=== PATIENT | male | born 1935 | race Hispanic/Latino ===

== ENCOUNTER 2019-03-15 22:47 | Observation (INO) | payer OTHER ==
[2019-03-15] MEDS ORDERED: ASPIRIN 81 MG CHEWABLE TABLET ONE (23:20)
[2019-03-15 23:28] LABS: Absolute Lymphocytes (CBC) 1.6 K/uL (0.7-4.9); Hematocrit 39.1 % (39.6-49.0); Lymphocytes % 19.9 % (15.3-44.8); MPV 9.8 fL (7.6-11.3); RBC Red Blood Cell Count 4.11 M/uL (4.33-5.43)
[2019-03-15 23:29] LABS: Protime INR 1.03
[2019-03-15 23:46] LABS: ALT/SGPT 26 U/L (12-78); AST/SGOT 21 U/L (15-37); Albumin 3.9 g/dL (3.4-5.0); Alkaline Phosphatase 99 U/L (45-117); BUN Blood Urea Nitrogen 23 mg/dL (7-18); Bicarbonate 24 mmol/L (21-32); Bilirubin Direct 0.1 mg/dL (0-0.2); Bilirubin Total 0.3 mg/dL (0.2-1.0); Glucose Level 93 mg/dL (74-106); Magnesium 2.1 mg/dL (1.8-2.4); NT PRO-BNP 223 pg/mL (<450); Potassium 3.3 mmol/L (3.5-5.1); Protein, Total 6.8 g/dL (6.4-8.2); Sodium Level 141 mmol/L (136-145); Troponin (Emerg Dept Use Only) < 0.02 ng/mL (0.0-0.045)
--- NOTE | 2019-03-16 01:32 | ER ---
Nurse's Notes [facility] Name: Av Garcia Age: 83 yrs Sex: Male : 1935 Arrival Date: 03/15/2019 Time: 22:50 Bed 17 Private MD: Diagnosis: Chest pain, unspecified Presentation: 03/15 22:55 Presenting complaint: Patient states: Pt reports he started feeling short of breath for ea the past two to three days, reports it worsened two hours ago, complaining of pain with deep breathing. Transition of care: patient was not received from another setting of care. Onset of symptoms was March 15, 2019. Risk Assessment: Do you want to hurt yourself or someone else? Patient reports no desire to harm self or others. Initial Sepsis Screen: Does the patient meet any 2 criteria? No. Patient's initial sepsis screen is negative. Does the patient have a suspected source of infection? No. Patient's initial sepsis screen is negative. Care prior to arrival: None. 22:55 Method Of Arrival: Wheelchair ea 22:55 Acuity: LILIANE 3 ea Triage Assessment: 23:00 General: Appears in no apparent distress. Behavior is calm, cooperative, appropriate ea for age. Pain: Complains of pain in chest. Neuro: Level of Consciousness is awake, alert, obeys commands, Oriented to person, place, time, situation. Respiratory: Airway is patent Respiratory effort is even, unlabored, Respiratory pattern is tachypnea. Historical: - Allergies: 23:00 No Known Allergies; ea - Home Meds: 23:00 losartan oral oral [Active]; ea - PMHx: 23:00 Hypertension; ea - PSHx: 23:00 None; ea - Immunization history:: Adult Immunizations up to date. - Social history:: Smoking status: Patient/guardian denies using tobacco. - Ebola Screening: : No symptoms or risks identified at this time. Screenin:59 Abuse screen: Denies threats or abuse. Nutritional screening: No deficits noted. ea Tuberculosis screening: No symptoms or risk factors identified. Fall Risk None identified. Assessment: 23:05 General: Appears in no apparent distress. comfortable, Behavior is calm, cooperative, ca1 appropriate for age. Pain: Complains of pain in chest Pain does not radiate. Pain currently is 8 out of 10 on a pain scale. Quality of pain is described as pressure, Pain began 4 hours ago. Is intermittent. Neuro: Level of Consciousness is awake, alert, obeys commands, Oriented to person, place, time, situation. Cardiovascular: Heart tones S1 S2 present Capillary refill < 3 seconds Patient's skin is warm and dry. Pulses are all present. Edema is 1+ to left foot and right foot Rhythm is sinus rhythm. Respiratory: Reports shortness of breath on exertion since 2-3 days Airway is patent Respiratory effort is even, unlabored, Respiratory pattern is regular, symmetrical, Breath sounds are clear bilaterally. GI: Abdomen is round non-distended, Bowel sounds present X 4 quads. Abd is soft and non tender X 4 quads. : No deficits noted. No signs and/or symptoms were reported regarding the genitourinary system. EENT: No deficits noted. No signs and/or symptoms were reported regarding the EENT system. Derm: Skin is intact, is healthy with good turgor, Skin is pink, warm \T\ dry. Musculoskeletal: Circulation, motion, and sensation intact. Capillary refill < 3 seconds, Range of motion: intact in all extremities. 03/16 00:52 Reassessment: Patient and/or family updated on plan of care and expected duration. Pain ea level reassessed. Patient is alert, oriented x 3, equal unlabored respirations, skin warm/dry/pink. 01:55 Reassessment: Patient and/or family updated on plan of care and expected duration. Pain ea level reassessed. Patient is alert, oriented x 3, equal unlabored respirations, skin warm/dry/pink. Awaiting for room assingment. 02:50 Reassessment: Patient and/or family updated on plan of care and expected duration. Pain ea level reassessed. Patient is alert, oriented x 3, equal unlabored respirations, skin warm/dry/pink. Report called to David RICARDO. 03:00 Reassessment: Patient and/or family updated on plan of care and expected duration. Pain ea level reassessed. Patient is alert, oriented x 3, equal unlabored respirations, skin warm/dry/pink. Pt admitted to fourth floor, taken via wheelchair per tech, accompanied by family pt tolerating well. Vital Signs: 03/15 22:58 BP 167 / 73; Pulse 69; Resp 22; Temp 98.5; Pulse Ox 98% on R/A; Weight 68.04 kg; Height ea 5 ft. 5 in. (165.10 cm); 03/16 00:51 BP 153 / 64; Pulse 50; Resp 18; Pulse Ox 98% on R/A; ea 01:55 BP 151 / 72; Pulse 50; Resp 18; Pulse Ox 98% ; ea 02:30 BP 171 / 77; Pulse 50; Resp 15 S; Pulse Ox 98% on R/A; cc3 03/15 22:58 Body Mass Index 24.96 (68.04 kg, 165.10 cm) ea ED Course: 03/15 22:50 Patient arrived in ED. ag3 22:56 Sanam Portillo, HALEIGH is Primary Nurse. ca1 22:58 Triage completed. ea 22:59 Patient has correct armband on for positive identification. Bed in low position. Call ea light in reach. Side rails up X2. 22:59 Arm band placed on right wrist. Patient placed in an exam room, on a stretcher, on ea pulse oximetry. 23:03 Erasto Kidd MD is Attending Physician. tw4 23:04 No provider procedures requiring assistance completed. Inserted saline lock: 20 gauge ca1 in right antecubital area, using aseptic technique. Blood collected. 23:36 X-ray completed. Portable x-ray completed in exam room. Patient tolerated procedure kw well. 23:37 XRAY Chest (1 view) In Process Unspecified. EDMS 03/16 00:46 CT Chest For PE Angio In Process Unspecified. EDMS 01:13 Ridge Rosen MD is Hospitalizing Provider. tw4 02:48 Patient admitted, IV remains in place. ea Administered Medications: 03/15 23:23 Drug: Aspirin 81 mg Route: PO; ca1 03/16 00:00 Follow up: Response: No adverse reaction ea Outcome: 01:14 Decision to Hospitalize by Provider. tw4 02:50 Instructed on the need for admit, Demonstrated understanding of instructions. ea 03:03 Admitted to Med/surg accompanied by tech, via wheelchair, with chart, Report called to russell Hernandez RN 03:03 Condition: stable 03:08 Patient left the ED. ea Signatures: Dispatcher [employer] Raina Kemp Elena, RN RN Erasto Julian MD MD tw4 Devora Tavarez cc3 Tatyana Barnard ag3 Sanam Portillo RN RN ca1 Corrections: (The following items were deleted from the chart) 03/15 23:01 22:58 BP 167 / 73; Pulse 69bpm; Resp 18bpm; Pulse Ox 98% RA; Temp 98.5F; 68.04 kg; ea Height 5 ft. 5 in.; BMI: 24.9; ea 03/16 03:05 03:03 Admitted to Med/surg accompanied by tech, via wheelchair, with chart, Report ea called to David wells
--- NOTE | 2019-03-16 01:34 | EDPHYS ---
Physician Documentation [facility] Name: Av Garcia Age: 83 yrs Sex: Male : 1935 Arrival Date: 03/15/2019 Time: 22:50 Bed 17 Private MD: ED Physician Erasto Kidd HPI: 03/16 01:05 This 83 yrs old Male presents to ER via Wheelchair with complaints of SOB. tw4 01:05 The patient or guardian reports chest pain that is located primarily in the anterior tw4 chest wall, left. Onset: today. The pain does not radiate. Associated signs and symptoms: The patient has no apparent associated signs or symptoms. The chest pain is described as dull. Severity of pain: At its worst the pain was moderate in the emergency department the pain. Historical: - Allergies: 03/15 23:00 No Known Allergies; ea - Home Meds: 23:00 losartan oral oral [Active]; ea - PMHx: 23:00 Hypertension; ea - PSHx: 23:00 None; ea - Immunization history:: Adult Immunizations up to date. - Social history:: Smoking status: Patient/guardian denies using tobacco. - Ebola Screening: : No symptoms or risks identified at this time. ROS: 03/16 01:05 Constitutional: Negative for fever, chills, and weight loss, Eyes: Negative for injury, tw4 pain, redness, and discharge, Abdomen/GI: Negative for abdominal pain, nausea, vomiting, diarrhea, and constipation. MS/Extremity: Negative for injury and deformity, Skin: Negative for injury, rash, and discoloration. Cardiovascular: Positive for chest pain, Negative for edema, orthopnea, palpitations. Respiratory: Positive for shortness of breath, Negative for cough, dyspnea on exertion, hemoptysis, orthopnea, pleurisy. Exam: 01:05 Constitutional: This is a well developed, well nourished patient who is awake, alert, tw4 and in no acute distress. Head/Face: Normocephalic, atraumatic. Chest/axilla: Normal chest wall appearance and motion. Nontender with no deformity. No lesions are appreciated. Cardiovascular: Regular rate and rhythm with a normal S1 and S2. No gallops, murmurs, or rubs. Normal PMI, no JVD. No pulse deficits. Respiratory: Lungs have equal breath sounds bilaterally, clear to auscultation and percussion. No rales, rhonchi or wheezes noted. No increased work of breathing, no retractions or nasal flaring. Abdomen/GI: Soft, non-tender, with normal bowel sounds. No distension or tympany. No guarding or rebound. No evidence of tenderness throughout. Back: No spinal tenderness. No costovertebral tenderness. Full range of motion. MS/ Extremity: Pulses equal, no cyanosis. Neurovascular intact. Full, normal range of motion. Neuro: Awake and alert, GCS 15, oriented to person, place, time, and situation. Cranial nerves II-XII grossly intact. Motor strength 5/5 in all extremities. Sensory grossly intact. Cerebellar exam normal. Normal gait. Vital Signs: 03/15 22:58 BP 167 / 73; Pulse 69; Resp 22; Temp 98.5; Pulse Ox 98% on R/A; Weight 68.04 kg; Height ea 5 ft. 5 in. (165.10 cm); 03/16 00:51 BP 153 / 64; Pulse 50; Resp 18; Pulse Ox 98% on R/A; ea 01:55 BP 151 / 72; Pulse 50; Resp 18; Pulse Ox 98% ; ea 02:30 BP 171 / 77; Pulse 50; Resp 15 S; Pulse Ox 98% on R/A; cc3 03/15 22:58 Body Mass Index 24.96 (68.04 kg, 165.10 cm) ea MDM: 03/15 23:03 Patient medically screened. tw4 03/16 01:14 Differential diagnosis: acute pericarditis, pneumonia, pulmonary embolus, stable tw4 angina. Data reviewed: vital signs, nurses notes. Data interpreted: Pulse oximetry: Interpretation: normal. Counseling: I had a detailed discussion with the patient and/or guardian regarding: the historical points, exam findings, and any diagnostic results supporting the discharge/admit diagnosis, radiology results. Special discussion: I discussed with the patient/guardian in detail that at this point there is no indication for admission to the hospital. It is understood, however, that if the symptoms persist or worsen the patient needs to return immediately for re-evaluation. 03/15 23:04 Order name: Basic Metabolic Panel ca1 03/15 23:04 Order name: CBC with Diff ca1 03/15 23:04 Order name: LFT's ca1 03/15 23:04 Order name: Magnesium; Complete Time: 01:11 [facility] 03/16 01:12 Interpretation: Within normal limits: MG 2.1. tw 03/15 23:04 Order name: NT PRO-BNP; Complete Time: 01:11 [facility] 03/16 01:12 Interpretation: Within normal limits: NT PRO-BNP 223. [facility] 03/15 23:04 Order name: PT-INR; Complete Time: 01:11 [facility] 03/16 01:12 Interpretation: Within normal limits: PT 12.1. tw 03/15 23:04 Order name: Troponin (emerg Dept Use Only); Complete Time: 01:11 [facility] 03/16 01:12 Interpretation: Within normal limits: TROPED < 0.02. [facility] 03/15 23:04 Order name: XRAY Chest (1 view) [facility] 03/15 23:04 Order name: Basic Metabolic Panel; Complete Time: 01:11 [facility] 03/16 01:12 Interpretation: Normal except: CL 109; BUN 23; GFR 84; K 3.3. [facility] 03/15 23:04 Order name: CBC with Automated Diff; Complete Time: 01:11 [facility] 03/16 01:12 Interpretation: Normal except: RBC 4.11; HGB 13.4; HCT 39.1; MCV 95.2; MN% 13.7. [facility] 03/15 23:04 Order name: Liver (Hepatic) Function; Complete Time: 01:11 [facility] 03/16 01:12 Interpretation: Within normal limits. [facility] 03/16 02:32 Order name: Lipid Profile [facility] 03/16 02:32 Order name: Troponin I [facility] 03/16 02:32 Order name: Troponin I [facility] 03/15 23:04 Order name: EKG; Complete Time: 23:05 [facility] 03/15 23:04 Order name: Cardiac monitoring; Complete Time: 23:04 [facility] 03/15 23:04 Order name: EKG - Nurse/Tech; Complete Time: 23:04 [facility] 03/15 23:04 Order name: IV Saline Lock; Complete Time: 23:04 [facility] 03/15 23:04 Order name: Labs collected and sent; Complete Time: 23:04 [facility] 03/15 23:04 Order name: O2 Per Protocol; Complete Time: 23:04 [facility] 03/15 23:04 Order name: O2 Sat Monitoring; Complete Time: 23:04 [facility] 03/15 23:26 Order name: CT Chest For PE Angio ea 03/16 02:31 Order name: CONS Physician Consult [facility] 03/16 02:31 Order name: Echo with Doppler [facility] 03/16 02:31 Order name: EKG Electrocardiogram [facility] 03/16 02:31 Order name: EKG Electrocardiogram [facility] EC:05 Rate is 69 beats/min. Rhythm is regular. QRS [place] is Normal. CO interval is normal. QRS tw4 interval is normal. QT interval is normal. No Q waves. T waves are Normal. No ST changes noted. Clinical impression: Normal ECG. Interpreted by me. Reviewed by me. Administered Medications: 03/15 23:23 Drug: Aspirin 81 mg Route: PO; [facility] 03/16 00:00 Follow up: Response: No adverse reaction ea Disposition: 03/16/19 01:14 Hospitalization ordered by Ridge Rosen for Observation. Preliminary diagnosis is Chest pain, unspecified. - Bed requested for Telemetry/MedSurg (observation). - Status is Observation. ea - Condition is Stable. - Problem is new. - Symptoms have improved. UTI on Admission? No Signatures: Dispatcher [employer] [facility] Nitza Bridges RN RN mw Antunez, Elena, RN RN ea Wadley, Terrence, MD MD tw4 Sanam Portillo RN RN ca1 Corrections: (The following items were deleted from the chart) 02:33 01:14 Hospitalization Ordered by Ridge Rosen MD for Observation. Preliminary mw diagnosis is Chest pain, unspecified. Bed requested for Telemetry/MedSurg (observation). Status is Observation. Condition is Stable. Problem is new. Symptoms have improved. UTI on Admission? No. tw4 03:08 02:33 03/16/2019 01:14 Hospitalization Ordered by Ridge Rosen MD for Observation. ea Preliminary diagnosis is Chest pain, unspecified. Bed requested for Telemetry/MedSurg (observation). Status is Observation. Condition is Stable. Problem is new. Symptoms have improved. UTI on Admission? No. chava
[2019-03-16] MEDS ORDERED: NITROGLYCERIN 0.4 MG/TAB SL PRN (02:26)
[2019-03-16] MEDS ORDERED: ACETAMINOPHEN 500 MG TAB PO PRN (02:26)
[2019-03-16] MEDS ORDERED: MORPHINE 4 MG/ML SYR IV PRN (02:26)
[2019-03-16] MEDS ORDERED: ALPRAZOLAM 0.25 MG TABLET PO PRN (02:26)
[2019-03-16 03:33] VITALS: O2SAT 98
[2019-03-16] MEDS ORDERED: HYDRALAZINE HCL 20 MG/ML VIAL IV PRN (04:02)
[2019-03-16 04:23] VITALS: BMI 31.1
[2019-03-16] MEDS ORDERED: METOPROLOL TAR 50 MG TAB PO SCH ×2 (06:00→07:08)
[2019-03-16 06:47] LABS: HDL Cholesterol 35 mg/dL (40-60); LDL Cholesterol, Calculated 100 (<130); Troponin I < 0.02 ng/mL (0.0-0.045)
[2019-03-16] MEDS ORDERED: PNEUMOCOCCAL VACCINE 0.5 ML IMVAC ONE (08:00)
--- NOTE | 2019-03-16 08:30 | RAD REPORT ---
EXAM DESCRIPTION: RAD - Chest Single View - 03/15/2019 11:37 pm CLINICAL HISTORY: Shortness of breath, pain on deep inspiration COMPARISON: June 2013 TECHNIQUE: AP portable chest image was obtained 2319 hours . FINDINGS: Lungs are clear. Heart and vasculature are normal. No measurable pleural effusion and no p neumothorax. No acute bony abnormality seen. No acute aortic findings suspected. IMPRESSION: No acute cardiopulmonary process. No significant change from comparison.
[2019-03-16] MEDS ORDERED: ASPIRIN EC 81 MG TAB PO SCH (09:00)
[2019-03-16] MEDS ORDERED: ENOXAPARIN 40 MG/0.4 ML SQ SCH (09:00)
[2019-03-16] MEDS ORDERED: LOSARTAN POTASSIUM 50 MG TABLET PO SCH (09:00)
--- NOTE | 2019-03-16 09:02 | P.HP ---
Certification for Inpatient Patient admitted to: Inpatient With expected LOS: >2 Midnights Patient will require the following post-hospital care: None Practitioner: I am a practitioner with admitting privileges, knowledge of patient current condition, hospital course, and medical plan of care. Services: Services provided to patient in accordance with Admission requirements found in Title 42 Section 412.3 of the Code of Federal Regulations Patient History Date of Service: 03/16/19 Reason for admission: Shortness of breath/dyspnea on exertion/orthopnea/PND History of Present Illness: Patient is an 83-year-old gentleman who came to the hospital with shortness of breath. He has been getting more short of breath for the last few weeks. Patient has been waking up at night having difficulty breathing. He has been feeling that he is having an asthma attack. He has never had asthma in the past. His only past medical history was hypertension. He has never been told that he has heart disease. He has no family history of heart disease. However he does have some swelling of the lower extremities. He has been getting more dyspneic on exertion. Decision was made to admit him to the hospital as he has signs and symptoms of congestive heart failure. Allergies No Known Allergies Allergy (Verified 03/16/19 03:15) Home Medications: Losartan Potassium [Cozaar] 50 mg PO BID 03/16/19 - Past Medical/Surgical History Has patient received pneumonia vaccine in the past: No Diabetic: No -: HTN -: Vascular Sx to BLE -: Lasik eye Sx - Family History Father Family History: Reviewed- Non-Contributory - Social History Smoking Status: Never smoker Alcohol use: Yes CD- Drugs: No Caffeine use: Yes Place of Residence: Home Review of Systems 10-point ROS is otherwise unremarkable Physical Examination - Vital Signs Temperature: 97.9 F Blood Pressure: 141/69 Pulse: 52 Respirations: 14 Pulse Ox (%): 96 - Physical Exam General: Alert, In no apparent distress, Oriented x3 HEENT: Atraumatic, PERRLA, Mucous membr. moist/pink, EOMI, Sclerae nonicteric Neck: Supple, 2+ carotid pulse no bruit, No LAD, JVD distended (hepatojugular reflux is significant) Respiratory: Clear to auscultation bilaterally, Normal air movement Cardiovascular: Regular rate/rhythm, Normal S1 S2, No murmurs Gastrointestinal: Normal bowel sounds, Soft and benign, Non-distended, No tenderness Musculoskeletal: No clubbing, No swelling Integumentary: Tenderness/swelling Neurological: Normal strength at 5/5 x4 extr, Sensation intact, Cranial nerves 3 -12 intact, Abnormal gait, Abnormal strength - Studies Laboratory Data (last 24 hrs) 03/15/19 23:07: PT 12.1, INR 1.03 03/15/19 23:07: WBC 8.2, Hgb 13.4 L, Hct 39.1 L, Plt Count 207 03/15/19 23:07: Sodium 141, Potassium 3.3 L, BUN 23 H, Creatinine 0.87, Glucose 93, Magnesium 2.1, Total Bilirubin 0.3, AST 21, ALT 26, Alkaline Phosphatase 99 Assessment & Plan - Problems (Diagnosis) (1) Chest pain, rule out acute myocardial infarction Current Visit: Yes Status: Acute (2) New onset of congestive heart failure Current Visit: Yes Status: Acute (3) JVD (jugular venous distension) Current Visit: Yes Status: Acute (4) COOL (dyspnea on exertion) Current Visit: Yes Status: Acute (5) PND (paroxysmal nocturnal dyspnea) Current Visit: Yes Status: Acute (6) HTN (hypertension) Current Visit: Yes Status: Acute - Plan 1. Echocardiogram 2. Start patient on an KAIA inhibitor or an ARB 3. Cont with low dose diuretics 4. Cardiology consultation 5. Gentle diuresis 6. Strict I's and O's 7. Repeat CXR 8. Daily weights 9. GI/DVt prophylaxis Discharge Plan: Home Plan to discharge in: 48 Hours - Advance Directives Does patient have a Living Will: No Does patient have a Durable POA for Healthcare: No - Code Status/Comfort Care Code Status Assessed: Yes Code Status: Full Code Critical Care: No Time Spent Managing PTS Care (In Minutes): 45
--- NOTE | 2019-03-16 09:27 | RAD REPORT ---
EXAM DESCRIPTION: CT - Chest For Pe Angio - 03/16/2019 1:00 am CLINICAL HISTORY: The patient is 83 years old and is Male; SOB TECHNIQUE: Axial computed tomographic angiography images of the chest with intravenous contrast usin g pulmonary embolism protocol. Sagittal and coronal reformatted images were created and reviewed. This CT exam was performed using one or more of the following dose reduction techniques: automated exposure control, adjustment of the mA and/or kV according to patient size, and/or use of iterative reconstruction technique. MIP reconstructed images were created and reviewed. COMPARISON: No relevant prior studies available. FINDINGS: ARTIFACTS: The exam is suboptimal secondary to motion artifact. PULMONARY ARTERIES: The main pulmonary arteries and segmental branches opacify normally and are without filling defect. AORTA: No acute findings. No thoracic aortic aneurysm. LUNGS: The lungs are clear. The tracheobronchial tree is widely patent. No mass. PLEURAL SPACE: Unremarkable. No significant effusion. No pneumothorax. HEART: The heart is borderline enlarged. No significant pericardial effusion. No evidence of RV dysfunction. BONES/JOINTS: Minimal degenerative change of the spine is present. No acute fracture. No dis location. SOFT TISSUES: Unremarkable. LYMPH NODES: Unremarkable. No enlarged lymph nodes. IMPRESSION: 1. The main pulmonary arteries and segmental branches opacify normally and are without filling defect. The remainder of the pulmonary vessels are inadequately evaluated secondary to mot ion artifact. 2. No acute findings. Electronically signed by: Lluvia Paulino MD 03/16/2019 12:54 AM CDT Due to temporary technical issues with the PACS/Fluency reporting system, reports are being signed by the in house radiologist as a courtesy to ensure prompt reporting. The interpreting radiologist is f ully responsible for the content of the report.
--- NOTE | 2019-03-16 09:59 | EKG ---
Test Date: 2019-03-15 Test Time: 22:56:46 Erp Pm: MATY MEASUREMENT RESULTS: Intervals: Rate: 69 CT: 170 QRSD: 106 QT: 424 QTc: 454 [place]: P: 66 CT: 170 QRS: 45 T: 66 INTERPRETIVE STATEMENTS: Normal sinus rhythm Normal ECG No previous ECG available for comparison Electronically Signed On 03-16-19 09:58:17 CDT by Mumtaz Zimmerman
[2019-03-16] MEDS: FUROSEMIDE 20 MG/ 2ML VIAL IV SCH ×2 (10:56→16:07)
--- NOTE | 2019-03-16 12:07 | CON ---
This is an 83-year-old man. Chief Complaint: Dyspnea. History Of Present Illness: Mr. Garcia has been having shortness of breath, that we do not know for h ow long. He seems to be able to lie flat, although sometimes he feels uncomfortable lying flat, some times will wake up in the middle of the night. He has had swelling of his ankles. He denies having chest pain. He notes shortness of breath when he walks a certain distance. Since being in the [facility], his blood pressure was initially high, now it has improved. His most recent blood pressure 141/ 69, and he is being treated with diuretics and it is probably why he is breathing so comfortably duri ng the exam. He has had several doses of IV Lasix. He has a history of hypertension, does not have diabetes, COPD, dyslipidemia. He takes losartan 50 mg b.i.d. No diuretic. He uses no tobacco. Rar e alcohol. No illegal drugs. Physical Examination: General: 5 feet 5 inches, 187 pounds. Lungs: Clear. Carotids: No bruit. Heart: Exam normal. Abdomen: Soft. Extremities: Normal. EKG normal. His chest x-ray shows no acute cardiopulmonary process, although the heart shadow to me appears to be the upper limit of normal. The recommendation is that we give him a diuretic to both h elp improve his blood pressure. Continue with the losartan, teach him about sodium restriction, flui d restriction, and get an echocardiogram. We can then tell if this is diastolic heart failure or not . I think it is a mild case of diastolic heart failure most likely. I believe he could be discharge d later today most likely. Thank you very much for your kind referral of Mr. Garcia. I will follow him with you. AROLDO/REYMUNDO Voice ID: [id number] Report ID: [id number]
--- NOTE | 2019-03-16 13:46 | P.DS ---
Admission Date: 03/16/19 Discharge Date: 03/16/19 Primary Care Provider: unknown Disposition: ROUTINE DISCHARGE Discharge Condition: GOOD Reason for Admission: Shortness of breath/dyspnea on exertion/orthopnea/PND Consultations: Cardiology: Dr. Zimmerman Procedures: CT scan: IMPRESSION: 1. The main pulmonary arteries and segmental branches opacify normally and are without filling defect. The remainder of the pulmonary vessels are inadequately evaluated secondary to motion artifact. 2. No acute findings. CXR: FINDINGS: Lungs are clear. Heart and vasculature are normal. No measurable pleural effusion and no pneumothorax. No acute bony abnormality seen. No acute aortic findings suspected. IMPRESSION: No acute cardiopulmonary process. No significant change from comparison. ECHO: Obtained likely Diastolic Medical Problem List: Edema to the lower extremity, shortness of breath secondary to acute on chronic diastolic CHF Hypertension Obesity, BMI 31 Brief History of Present Illness: 83-year-old male presented to the emergency room with shortness of breath. This comes and goes. This has been present for quite some time. In the ER blood pressures were elevated. Patient with history of hypertension takes losartan 50 mg 1 pill twice daily. Patient was admitted for further evaluation. CT scan unremarkable. Hospital Course: Patient presented with edema and shortness of breath. Patient seen and evaluated by Cardiology. Patient received diuretic therapy. Patient likely with underlying acute on chronic diastolic CHF. Echocardiogram done. Case discussed at length with cardiology. At discharge patient will continue with losartan 50 mg 1 pill twice daily. Patient will continue with a 1500 cc per day fluid restriction and low-salt diet. Patient will need to monitor his weight daily. If his weight increases by more than 5 lb he is to contact his PCP for further recommendation. At discharge patient will continue with Lasix 20 mg daily to be use as needed for increased edema/shortness of breath. Further adjustment in medication can be done by his PCP. Recommend follow up with cardiology in 1-2 weeks to follow up this hospitalization. Patient with underlying hypertension. Blood pressure stable at this time. At discharge he will continue with losartan 50 mg 1 pill twice daily. Recommend to maintain blood pressures less 150/80. Further adjustment can be done by his PCP. Patient with obesity, BMI 31. Lifestyle modification education provided. Vital Signs/Physical Exam: Temp Pulse Resp BP Pulse Ox 98.0 F 59 14 139/72 97 03/16/19 12:00 03/16/19 12:00 03/16/19 12:00 03/16/19 12:00 03/16/19 12:00 General: Alert, In no apparent distress, Oriented x3, Cooperative HEENT: Atraumatic Neck: Supple Respiratory: Clear to auscultation bilaterally, Normal air movement Cardiovascular: Normal pulses, Regular rate/rhythm Gastrointestinal: Normal bowel sounds, No tenderness, No masses, No rebound, No guarding Musculoskeletal: No erythema, No tenderness, No warmth Integumentary: Other (Edema to the lower extremity improved) Neurological: Normal speech, Normal strength at 5/5 x4 extr, Normal tone, Normal affect Laboratory Data at Discharge: WBC 8.2 K/uL (4.3-10.9) 03/15/19 23:07 Hgb 13.4 g/dL (13.6-17.9) L 03/15/19 23:07 Hct 39.1 % (39.6-49.0) L 03/15/19 23:07 Plt Count 207 K/uL (152-406) 03/15/19 23:07 PT 12.1 SECONDS (9.5-12.5) 03/15/19 23:07 INR 1.03 03/15/19 23:07 Sodium 141 mmol/L (136-145) 03/15/19 23:07 Potassium 3.3 mmol/L (3.5-5.1) L 03/15/19 23:07 BUN 23 mg/dL (7-18) H 03/15/19 23:07 Creatinine 0.87 mg/dL (0.55-1.3) 03/15/19 23:07 Glucose 93 mg/dL (74-106) 03/15/19 23:07 Magnesium 2.1 mg/dL (1.8-2.4) 03/15/19 23:07 Total Bilirubin 0.3 mg/dL (0.2-1.0) 03/15/19 23:07 AST 21 U/L (15-37) 03/15/19 23:07 ALT 26 U/L (12-78) 03/15/19 23:07 Alkaline Phosphatase 99 U/L (45-117) 03/15/19 23:07 Troponin I < 0.02 ng/mL (0.0-0.045) 03/16/19 05:59 Triglycerides 121 mg/dL (<150) 03/16/19 05:59 Cholesterol 159 mg/dL (<200) 03/16/19 05:59 HDL Cholesterol 35 mg/dL (40-60) L 03/16/19 05:59 Cholesterol/HDL Ratio 4.54 03/16/19 05:59 Home Medications: Furosemide [Lasix] 20 mg PO DAILY PRN #30 tab 03/16/19 Losartan Potassium [Cozaar*] 50 mg PO BID 03/16/19 New Medications: Furosemide [Lasix] 20 mg PO DAILY PRN #30 tab PRN Reason: Shortness Of Breath Patient Discharge Instructions: 1. Patient will follow up with his PCP in 1 week to follow up this hospitalization. 2. Patient presented with edema and shortness of breath. Patient seen and evaluated by Cardiology. Patient received diuretic therapy. Patient likely with underlying acute on chronic diastolic CHF. Echocardiogram done. Case discussed at length with cardiology. At discharge patient will continue with losartan 50 mg 1 pill twice daily. Patient will continue with a 1500 cc per day fluid restriction and low-salt diet. Patient will need to monitor his weight daily. If his weight increases by more than 5 lb he is to contact his PCP for further recommendation. At discharge patient will continue with Lasix 20 mg daily to be use as needed for increased edema/shortness of breath. Further adjustment in medication can be done by his PCP. Recommend follow up with cardiology in 1-2 weeks to follow up this hospitalization. 3. Patient with underlying hypertension. Blood pressure stable at this time. At discharge he will continue with losartan 50 mg 1 pill twice daily. Recommend to maintain blood pressures less 150/80. Further adjustment can be done by his PCP. 4. Patient with obesity, BMI 31. Lifestyle modification education provided. Diet: AHA Activity: Ad jason Time spent managing pt's care (in minutes): 55
[2019-03-16 16:08] VITALS: BP 142/62
[2019-03-16 17:01] VITALS: TEMP 98.1
--- NOTE | 2019-03-17 07:39 | ECHO ---
HEIGHT: 5 ft 5 in WEIGHT: 187 lb 4.8 oz DATE OF STUDY: 03/16/[address]: Ridge Rosen MD 2-DIMENSIONAL: YES M.MODE: YES DOPPLER: YES COLOR FLOW: YES TDS: NO PORTABLE: NO DEFINITY: NO BUBBLE STUDY: NO DIAGNOSIS: CHEST PAIN RULE OUT ACS CARDIAC HISTORY: CATHERIZATION: NO SURGERY: NO PROSTHETIC VALVE: NO PACEMAKER: NO MEASUREMENTS (cm) DIASTOLIC (NORMALS) SYSTOLIC (NORMALS) IVSd 0.8 (0.6-1.2) LA Diam 3.6 (1.9-4.0) LVEF 64% LVIDd 5.0 (3.5-5.7) LVIDs 3.3 (2.0-3.5) %FS 35% LVPWd 1.1 (0.6-1.2) Ao Diam 3.5 (2.0-3.7) 2 DIMENSIONAL ASSESSMENT: RIGHT ATRIUM: NORMAL LEFT ATRIUM: NORMAL RIGHT VENTRICLE: NORMAL LEFT VENTRICLE: NORMAL TRICUSPID VALVE: NORMAL MITRAL VALVE: NORMAL PULMONIC VALVE: NORMAL AORTIC VALVE: NORMAL PERICARDIAL EFFUSION: NONE AORTIC ROOT: NORMAL LEFT VENTRICULAR WALL MOTION: NORMAL DOPPLER/COLOR FLOW: MILD TRICUSPID AND MITRAL REGURGITATION. NORMAL RIGHT VENTRICULAR SYSTOLIC PRESSURE. MILDLY DECREASED LEFT VENTRICULAR COMPLIANCE, NORMAL FOR AGE. COMMENTS: NORMAL 2D ECHOCARDIOGRAM. MILD TRICUSPID AND MITRAL REGURGITATION. TECHNOLOGIST: Rowdy LONG
== END 2019-03-16 17:20 | disposition home or self-care (01) ==
LOC: ER 22:47 → ERHOLD 03-16 02:36 → 4TH 03-16 02:51
PROVIDERS: ADMIT Hospitalist; ATTEND Hospitalist
DX: I11.0 Hypertensive heart disease with heart failure (principal); I50.33 Acute on chronic diastolic (congestive) heart failure; E66.9 Obesity, unspecified; Z68.31 Body mass index [BMI] 31.0-31.9, adult; Z23 Encounter for immunization
CPT/HCPCS: 93005; 93306; 85025; 80048; 36415; 83735; 85610; 80061; 80076; 84484 ×3; 83880; 71275; 71045; 90471; 90670; 99285; Q9967; J0360; J1940 ×2; J1650; G0378 ×2